=== PATIENT | male | born 1965 | race Caucasian/White ===

== ENCOUNTER 2016-12-25 13:38 | Day surgery (SDC) | payer OTHER ==
[~2016-12-25] VITALS: Ht 177.8 cm; Wt 108.8 kg
[~2016-12-25 13:38] MED LIST: ADVIL,NUPRIN,M200 MG PO; FISH OIL CONC1 EACH PO; FLOMAX0.4 MG PO; PRAVACHOL80 MG PO; PULMICORT FLE180 MCG IH; ROPINIROLE HCL2 MG PO; SERTRALINE HCL25 MG PO; VALSARTAN160 MG PO; VENTOLIN HFA18 GM IH; VITAMIN B-COMP1 EACH PO
[2016-12-25 14:20] VITALS: BP 160/90
== END 2016-12-25 17:00 | disposition home or self-care (01) ==
LOC: SDC 13:38
PROC: BV49ZZZ Ultrasonography of Prostate and Seminal Vesicles (ICD-10-PCS; principal; 2016-12-25)
DX: C61 Malignant neoplasm of prostate (principal); I10 Essential (primary) hypertension; E78.5 Hyperlipidemia, unspecified; J45.909 Unspecified asthma, uncomplicated; G25.81 Restless legs syndrome; F41.9 Anxiety disorder, unspecified; F32.9 Major depressive disorder, single episode, unspecified; Z68.34 Body mass index [BMI] 34.0-34.9, adult; Z80.0 Family history of malignant neoplasm of digestive organs
CPT/HCPCS: 76873

== ENCOUNTER → 2017-01-09 | Outpatient (CLI) | payer OTHER | END | disposition home or self-care (01) | LOC: JMC/R 08:00 | DX: C61 Malignant neoplasm of prostate (principal) | CPT/HCPCS: 77470 ==

== ENCOUNTER 2017-01-22 08:11 | Day surgery (SDC) | payer OTHER ==
[~2017-01-22] VITALS: Ht 177.8 cm; Wt 108.8 kg
[2017-01-22 08:38] VITALS: BP 137/81
[2017-01-22 13:55] VITALS: BP 126/83
[2017-01-22 15:05] VITALS: BP 144/91
[2017-01-22 16:45] VITALS: BP 134/92
== END 2017-01-22 16:45 | disposition home or self-care (01) ==
LOC: SDC 08:11 → 2SOUTH 15:55 → EDSTATUS 15:56 → SDC 15:57
PROC: 0TCB8ZZ Extirpation of Matter from Bladder, Via Natural or Artificial Opening Endoscopic (ICD-10-PCS; principal; 2017-01-22)
DX: C61 Malignant neoplasm of prostate (principal); I10 Essential (primary) hypertension; J45.909 Unspecified asthma, uncomplicated
CPT/HCPCS: 76965; 77332; 77778; C2638; J0330; J0744; J1100; J1170; J2250; J2405; J2710; J3010